=== PATIENT | female | born 1960 | race Caucasian/White ===

== ENCOUNTER 2018-11-13 09:37 | Emergency (ER) | payer OTHER ==
--- NOTE | 2018-11-13 11:03 | ED PDOC ---
HPI: Female Pain Time Seen by Provider: 11/13/18 10:31 Chief Complaint (Nursing): Female Genitourinary Chief Complaint (Provider): hemorrhoids History Per: Patient History/Exam Limitations: no limitations Onset/Duration Of Symptoms: Days (>365 days (pt indicates > ten years)), Intermittent Episodes Quality Of Discomfort: Sharp (Pt presents to the ED complaining of ten years of hemorrhoidal pain with occasional bright red bleeding from time to time with rectal wiping. Pt denies other medical complaints or issues, pt denies NVD and fever), "Pain" Past Medical History Reviewed: Historical Data, Nursing Documentation, Vital Signs Vital Signs: Last Vital Signs Temp 98.1 F 11/13/18 09:42 Pulse 63 11/13/18 09:42 Resp 18 11/13/18 09:42 BP 190/91 H 11/13/18 09:42 Pulse Ox 99 11/13/18 09:42 - Medical History PMH: HTN - Family History Family History: States: Unknown Family Hx - Home Medications Home Medications: Ambulatory Orders Medication Instructions Recorded PE/Shark Liver Oil/Glyc/Wh.pet 1 gm RC TID #52 gm 11/13/18 [Hemorrhoidal Cream] Psyllium Husk/Aspartame [Metamucil 1 unit PO TID #30 unit 11/13/18 Fiber Singles Packet] Witch Lesli [Hemorrhoidal 1 each TP PRN PRN #50 each 11/13/18 Medicated Wipes] Review of Systems ROS Statement: Except As Marked, All Systems Reviewed And Found Negative Constitutional: Negative for: Fever Gastrointestinal: Positive for: Rectal Pain Physical Exam - Reviewed Nursing Documentation Reviewed: Yes Vital Signs Reviewed: Yes - Physical Exam Appears: Positive for: Well, Non-toxic, No Acute Distress. Negative for: Uncomfortable Head Exam: Positive for: ATRAUMATIC, NORMAL INSPECTION Skin: Positive for: Normal Color, Warm, Dry. Negative for: Diaphoresis, Pallor, Rash Eye Exam: Positive for: Normal appearance. Negative for: Nystagmus, Periorbital swelling, Periorbital tenderness Cardiovascular/Chest: Positive for: Regular Rate, Rhythm Respiratory: Positive for: Normal Breath Sounds Pulses-Carotid (L): 2+ Pulses-Carotid (R): 2+ Pulses-Radial (L): 2+ Pulses-Radial (R): 2+ Rectal: Positive for: Hemorrhoids (There is a single protruding hemorrhoid that measures <0.5cm at the 2 oclock of the anus; the hemorrhoid is not bleeding and is not thrombosed. It was reinserted to the anus digitally) Neurologic/Psych: Positive for: Alert, Oriented. Negative for: Aphasia - ECG O2 Sat by Pulse Oximetry: 99 Medical Decision Making Medical Decision Making: I: Hemorhhoid/External P: discharge with instructions on self care to include increased fiber, sitz baths, moist tissues and topical gels Pt urged to follow up with her PMD if symptoms do not self resolve Disposition - Clinical Impression Clinical Impression: External hemorrhoid - Patient ED Disposition Is Patient to be Admitted: No Doctor Will See Patient In The: Office Counseled Patient/Family Regarding: Studies Performed, Diagnosis, Need For Followup, Rx Given - Disposition Disposition: Routine/Home Disposition Time: 11:10 Condition: STABLE Prescriptions: PE/Shark Liver Oil/Glyc/Wh.pet [Hemorrhoidal Cream] 1 gm RC TID #52 gm Psyllium Husk/Aspartame [Metamucil Fiber Singles Packet] 1 unit PO TID #30 unit Witch Lesli [Hemorrhoidal Medicated Wipes] 1 each TP PRN PRN #50 each PRN Reason: Hemorrhoids Instructions: Hemorrhoids (DC), Hemorrhoids Forms: [employer] (Lao)
[2018-11-13 11:47] VITALS: BP 167/78; PULSE 70; RESP 19; TEMP 97.6; O2SAT 98
== END 2018-11-13 11:48 | disposition home or self-care (01) ==
LOC: H.ER 09:37
DX: K64.8 Other hemorrhoids (principal); I10 Essential (primary) hypertension